=== PATIENT | female | born 1980 | race African-American/Black ===

== ENCOUNTER 2021-06-27 11:41 | Emergency (ER) | payer MEDICAID ==
[2021-06-28 14:10] LABS: SARS-CoV-2 PCR by NAA Not Detected (NotDetected)
== END 2021-06-27 13:41 | disposition home or self-care (01) ==
LOC: ERS 11:41
DX: J06.9 Acute upper respiratory infection, unspecified (principal); J01.90 Acute sinusitis, unspecified; I10 Essential (primary) hypertension; F17.200 Nicotine dependence, unspecified, uncomplicated; Z20.822 Contact with and (suspected) exposure to COVID-19
CPT/HCPCS: 71046; U0003; U0005